=== PATIENT | male | born 1940 | race Caucasian/White ===

== ENCOUNTER 2018-09-26 08:00 | Inpatient (IN) ==
[2018-09-20 15:34] LABS: URINE SOURCE CLEAN CATCH
[2018-09-20 15:41] LABS: BASO# 0.02 X1000 (0.0-0.2); BASO% 0.2 % (0.0-0.8); EOS# 0.06 X1000 (0.0-0.7); EOS% 0.7 % (0.0-10.0); HEMATOCRIT 35.8 % (42.0-52.0); HEMOGLOBIN 11.8 g/dL (14.0-18.0); IMM GRAN# 0.02 X1000 (0.0-0.04); IMM GRAN% 0.2 % (0.0-0.5); LYMPH# 1.99 X1000 (1.2-3.4); LYMPH% 23.9 % (20.5-51.1); MONO# 0.96 X1000 (0.11-0.59); MONO% 11.5 % (1.7-9.3); MPV 9.4 FL (7.4-10.4); NEUT# 5.27 X1000 (1.4-6.5); NEUT% 63.5 % (42.2-75.2); PLT 228 X1000 (130-400); RBC 3.81 XMIL (4.7-6.1); RDW 12.4 % (11.5-14.5); WBC 8.32 X1000 (4.8-10.8)
[2018-09-20 15:42] LABS: BILIRUBIN URINE NEGATIVE (NEGATIVE); BLOOD URINE TRACE (NEGATIVE); COLOR YELLOW; GLUCOSE URINE NEGATIVE (NEGATIVE); KETONE URINE NEGATIVE (NEGATIVE); LEUKOCYTES URINE NEGATIVE (NEGATIVE); NITRITE URINE NEGATIVE (NEGATIVE); PH URINE 6.5; PROTEIN URINE TRACE mg/dL (NEGATIVE); SP GRAVITY URINE 1.017; TURBIDITY URINE CLEAR (CLEAR); UROBILINOGEN URINE NORMAL (NORMAL)
[2018-09-20 15:43] LABS: UR EPITHELIAL CELLS <10 /HPF (<10); URINE BACTERIA NEGATIVE /HPF; URINE RBC <10 /HPF (<10); URINE WBC <10 /HPF (<10)
[2018-09-20 15:47] LABS: PTT 29.5 Seconds (22.3-41.8)
[2018-09-20 16:10] LABS: AGAP 10; BUN 30 mg/dL (8-22); CHLORIDE 96 mmol/L (98-107); COSMO 274; CREATININE 0.9 mg/dL (0.7-1.2); ESTIMATED GFR > 60; GLUCOSE 116 mg/dL (70-104); POTASSIUM 4.3 mmol/L (3.5-5.1); SODIUM 133 mmol/L (136-145); TCO2 27 mmol/L (25-35)
[2018-10-10] MEDS ORDERED: PEPCID ONE (09:26)
[2018-10-10] MEDS ORDERED: REGLAN ONE (09:26)
[2018-10-10] MEDS ORDERED: LYRICA ONE (09:27)
[2018-10-10] MEDS ORDERED: LR 1,000 ML ONE (09:27)
[2018-10-10] MEDS ORDERED: KEFZOL 1 GM/D5W 2 GM/100 ML IVPB ONE (09:27)
[2018-10-10] MEDS ORDERED: CELEBREX ONE (09:27)
[2018-10-10] MEDS ORDERED: COLACE ONE (09:31)
[2018-10-10] MEDS ORDERED: DIPRIVAN 1% ONE (10:30)
[2018-10-10] MEDS ORDERED: FENTANYL ONE ×2 (10:30→12:29)
[2018-10-10] MEDS ORDERED: XYLOCAINE-MPF 2% ONE (10:32)
[2018-10-10] MEDS ORDERED: QUELICIN (DOSE) ONE (10:32)
[2018-10-10] MEDS ORDERED: DURAMORPH ONE (10:41)
[2018-10-10] MEDS ORDERED: TORADOL ONE (10:41)
[2018-10-10] MEDS ORDERED: SODIUM CHLORIDE 0.9% ONE (10:42)
[2018-10-10] MEDS ORDERED: SENSORCAINE-MPF 0.5%/EPI 1:200,000 ONE (10:42)
[2018-10-10] MEDS ORDERED: CYKLOKAPRON 1,000 MG/NS 1,000 MG/100 ML IVPB ONE (10:42)
[2018-10-10] MEDS ORDERED: EXPAREL 1.3% ONE (10:42)
[2018-10-10] MEDS ORDERED: NEOSPORIN G.U. IRRIGANT ONE (10:42)
[2018-10-10] MEDS ORDERED: ZOFRAN ONE (12:23)
[2018-10-10] MEDS ORDERED: OFIRMEV 1000 MG/ISOTONIC SOLN 1,000 MG/100 ML BOTTLE ONE (12:23)
[2018-10-10] MEDS ORDERED: DECADRON ONE ×2 (12:23)
[2018-10-10 12:24] LABS: URINE SOURCE CATH
[2018-10-10 12:38] LABS: BILIRUBIN URINE NEGATIVE (NEGATIVE); BLOOD URINE NEGATIVE (NEGATIVE); COLOR YELLOW; GLUCOSE URINE NEGATIVE (NEGATIVE); KETONE URINE NEGATIVE (NEGATIVE); LEUKOCYTES URINE NEGATIVE (NEGATIVE); NITRITE URINE NEGATIVE (NEGATIVE); PH URINE 7.5; PROTEIN URINE NEGATIVE (NEGATIVE); TURBIDITY URINE CLEAR (CLEAR); UROBILINOGEN URINE NORMAL (NORMAL)
[2018-10-10 12:40] LABS: UR EPITHELIAL CELLS <10 /HPF (<10); URINE BACTERIA NEGATIVE /HPF; URINE RBC <10 /HPF (<10); URINE WBC <10 /HPF (<10)
--- NOTE | 2018-10-10 13:22 | OPERATIVE NOTE ---
PROCEDURE DATE: 10/10/2018 PREOPERATIVE DIAGNOSIS: Left hip degenerative joint disease. POSTOPERATIVE DIAGNOSIS: Left hip degenerative joint disease. PROCEDURE PERFORMED: Left anterior total hip arthroplasty using [facility] size 12 high offset stem with a +0 36 mm head and a 56 mm hemispherical shell with a 35 and 25, 6.5 screw and a 36 mm inside diameter acetabular liner. ANESTHESIA: General. SURGEON: Víctor Carrillo MD. [employer]: Elizabeth Jenkins PA-C, who was present throughout the case, whose assistance was critical for exposure, placement implants, and wound closure. Her assistance greatly reduced anesthesia and operative time and improved efficiency in the OR. BLOOD LOSS: Minimal. DRAINS: Hemovac x1. DESCRIPTION OF PROCEDURE: The patient was brought to the operative suite and placed in supine position. After successful administration of general anesthesia, a longitudinal incision was made beginning 3 cm distal and 3 cm lateral to the anterior superior iliac spines and extending distally and slightly laterally. We dissected sharply through the skin and then sharply down to the tensor fascia. The tensor fascia was incised and dissected bluntly down to the deep tensor fascia. The deep tensor fascia was incised and circumflex vessels electrocauterized, exposing the anterior capsule. A T capsulotomy was performed exposing the femoral neck. Femoral neck cut was made with oscillating saw. Femoral head was removed power corkscrew. The labrum was resected. The acetabulum was serially reamed to a 56 to accept a 56 cup. The 56 cup was driven into place in the proper amount of inclination and anteversion and then two 6.5 cancellous screws were placed, a 35 mm superiorly and a 25 mm posterior-superiorly. The acetabular liner was locked onto the shell. Attention was then directed to the femur. The femur was externally rotated, extended, adducted, and elevated out of the wound with the hook on the OSI bed. The lateral neck was rongeured. The canal was serially broached to a size 12. A size 12 high offset +0 was trialed and found be excellent leg length, excellent stability of the hip, excellent fit and fill of the stem, excellent offset. The trial stem was then removed. The definitive stem was seated onto the femur and then the ceramic head was seated on the Waters taper. The hip was again reduced. A drain was placed deep to the tensor fascia and buried around the stem neck. X-rays showed excellent placement of the stem, excellent offset, excellent leg length, and excellent stability of the hip. The anterior capsule was repaired with #2 FiberWire. The hip was copiously irrigated with normal saline containing irrigant and Vashe irrigation, and a drain was placed deep to the tensor fascia buried around the stem neck. The tensor fascia was closed with 0 V-Loc. Skin edge approximated with 2-0 Vicryl. Skin was closed with 4-0 Monocryl and a Prineo dressing. A sterile dressing was applied. The patient tolerated the procedure well without complication. At the end the procedure, all counts were correct x2. The patient was transferred to the recovery room in stable condition. cc: Víctor Carrillo MD [facility]
[2018-10-10] MEDS ORDERED: NS 1,000 ML ONE (13:33)
[2018-10-10] MEDS: DILAUDID ONE ×2 (13:48→13:51)
[2018-10-10] MEDS ORDERED: MILK OF MAGNESIA PO PRN (15:43)
[2018-10-10] MEDS ORDERED: MORPHINE IV PRN (15:43)
[2018-10-10] MEDS ORDERED: NITROGLYCERIN SL PRN (15:43)
[2018-10-10] MEDS ORDERED: OXY IR PO PRN ×2 (15:43)
[2018-10-10] MEDS ORDERED: ZOFRAN IV PRN (15:43)
[2018-10-10] MEDS: NS 1,000 ML IV SCH ×2 (17:09→17:10)
[2018-10-10] MEDS ORDERED: CYKLOKAPRON 1,000 MG in NS 100 ML IV ONE (17:45)
[2018-10-10] MEDS: PERIDEX MT SCH (20:01)
[2018-10-10] MEDS: TYLENOL PO SCH (20:02)
[2018-10-10] MEDS: LYRICA PO SCH (20:02)
[2018-10-10] MEDS: COLACE PO SCH (20:03)
[2018-10-10] MEDS: ULTRAM PO SCH (20:03)
[2018-10-10] MEDS: KEFZOL 2 GM/D5W 2 GM/50 ML IVPB IV SCH (20:56)
[2018-10-11] MEDS: KEFZOL 2 GM/D5W 2 GM/50 ML IVPB IV SCH (03:07)
[2018-10-11] MEDS: ULTRAM PO SCH ×4 (03:08→21:28)
[2018-10-11] MEDS: TYLENOL PO SCH ×4 (03:08→21:29)
[2018-10-11] MEDS: NS 1,000 ML IV SCH ×3 (03:09→18:47)
[2018-10-11 06:10] LABS: HEMATOCRIT 26.5 % (42.0-52.0); HEMOGLOBIN 8.7 g/dL (14.0-18.0)
[2018-10-11 06:40] LABS: AGAP 12; BUN 23 mg/dL (8-22); CALCIUM 7.8 mg/dL (8.8-10.2); CHLORIDE 98 mmol/L (98-107); COSMO 273; CREATININE 0.9 mg/dL (0.7-1.2); ESTIMATED GFR > 60; GLUCOSE 114 mg/dL (70-104); POTASSIUM 4.2 mmol/L (3.5-5.1); SODIUM 134 mmol/L (136-145); TCO2 24 mmol/L (25-35)
[2018-10-11] MEDS: PROTONIX PO SCH (08:07)
[2018-10-11] MEDS: PERIDEX MT SCH ×2 (08:08→21:28)
[2018-10-11] MEDS: COLACE PO SCH ×2 (08:08→21:29)
[2018-10-11] MEDS: ASPIRIN PO SCH (08:08)
[2018-10-11] MEDS: PEPCID PO SCH (08:08)
[2018-10-11] MEDS: LYRICA PO SCH ×2 (08:08→21:29)
[2018-10-11] MEDS: CENTRUM SILVER PO SCH (08:08)
--- NOTE | 2018-10-11 08:36 | DISCHARGE SUMMARY ---
ADMISSION DATE: 10/10/2018 DISCHARGE DATE: 10/12/2018 DISCHARGE DIAGNOSIS: Left hip degenerative joint disease status post left anterior total hip arthroplasty. DISCHARGE MEDICATION: See discharge medication list. DISPOSITION: The patient discharged home with home health physical therapy. Instructed to return for any signs of symptoms of infection or deep venous thrombosis. Instructed return to see Dr. Carrillo next . HOSPITAL COURSE: On the day of admission, patient underwent a left anterior total hip arthroplasty. His postoperative course was unremarkable. He was discharged afebrile, tolerating a regular diet, ambulating well with physical therapy. His wound is clean, dry , and intact without sign of infection. He is discharged home in stable condition, instructed to follow up as described above. cc: Vícotr Carrillo MD MTDD
[2018-10-11] MEDS ORDERED: DECADRON IV ONE (09:00)
[2018-10-11 09:32] LABS: AGAP 9; BUN 20 mg/dL (8-22); CALCIUM 7.8 mg/dL (8.8-10.2); CHLORIDE 101 mmol/L (98-107); COSMO 276; CREATININE 0.9 mg/dL (0.7-1.2); ESTIMATED GFR > 60; GLUCOSE 149 mg/dL (70-104); SODIUM 135 mmol/L (136-145); TCO2 25 mmol/L (25-35)
[2018-10-11] MEDS: DIOVAN PO SCH (18:46)
[2018-10-11] MEDS: HYDROCHLOROTHIAZIDE PO SCH (18:47)
[2018-10-11] MEDS: LASIX PO SCH (18:47)
[2018-10-11] MEDS: PRAVACHOL PO SCH (21:28)
[2018-10-12] MEDS: TYLENOL PO SCH ×4 (02:38→21:24)
[2018-10-12] MEDS: ULTRAM PO SCH ×4 (02:39→21:22)
[2018-10-12 06:18] LABS: HEMATOCRIT 24.8 % (42.0-52.0); HEMOGLOBIN 8.1 g/dL (14.0-18.0)
[2018-10-12] MEDS: PROTONIX PO SCH (06:49)
[2018-10-12] MEDS: DIOVAN PO SCH (09:16)
[2018-10-12] MEDS: COLACE PO SCH ×2 (09:17→21:23)
[2018-10-12] MEDS: LASIX PO SCH (09:17)
[2018-10-12] MEDS: CENTRUM SILVER PO SCH (09:17)
[2018-10-12] MEDS: PEPCID PO SCH (09:17)
[2018-10-12] MEDS: LYRICA PO SCH ×2 (09:17→21:23)
[2018-10-12] MEDS: ASPIRIN PO SCH (09:17)
[2018-10-12] MEDS: HYDROCHLOROTHIAZIDE PO SCH (09:18)
--- NOTE | 2018-10-12 11:36 | PROGRESS NOTE ---
DATE: 10/12/2018 SUBJECTIVE: Doyle Sanchez is a 78-year-old male with a left anterior total hip arthroplasty. He has no complaints. OBJECTIVE: He is a well-developed, well-nourished male. He is alert, oriented, and cooperative with the exam. His vital signs are stable. He is afebrile. His hematocrit is 26.4. His hemoglobin is 8.7. However, he was unable to adequately ambulate safely or navigate stairs today. Therefore, we have canceled any discharge plans and we will keep him overnight. ASSESSMENT: Left anterior total hip arthroplasty. PLAN: We will continue working with physical therapy and hopefully he can go home tomorrow if he is ambulatory. cc: Víctor Carrillo MD
--- NOTE | 2018-10-12 12:04 | PROGRESS NOTE ---
DATE: 10/12/2018 SUBJECTIVE: Doyle Sanchez is a 78-year-old male who is postoperative day 2 from a left total hip arthroplasty. He has no complaints. OBJECTIVE: He is a well-developed, well-nourished male. He is alert, oriented, and cooperative with exam. He is still having difficulty with physical therapy. He still has to be the assisted and cannot walk on his own. 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 LABORATORY DATA: Hematocrit is 24 today. ASSESSMENT: Acute blood-loss anemia and slow progress with physical therapy due to his right leg. PLAN: We are going to continue working with physical therapy. We are going to try to get him into rehab tomorrow. I am going to go ahead and transfuse him 2 units this afternoon. I think he will do much better once he gets to rehab for a while and gets some more strength. cc: Víctor Carrillo MD
[2018-10-12] MEDS ORDERED: NS 500 ML ONE (13:20)
[2018-10-12] MEDS ORDERED: NS 500 ML IV SCH (14:00)
--- NOTE | 2018-10-12 16:04 | Diag Imaging Result Doc PS360 ---
CHEST-PORTABLE - 10/12/2018 INDICATION: REHAB PLACEMENT COMPARISON: 04/08/2016 FINDINGS: Stable significant calcified pleural plaques bilaterally. No focal infiltrates, pneumothorax, or pleural effusion. Heart size remains top normal. IMPRESSION: No acute process. Electronically signed by Haider Fitzpatrick 10/12/2018 4:02 PM
[2018-10-12] MEDS: PERIDEX MT SCH ×2 (20:52→21:22)
[2018-10-12] MEDS: PRAVACHOL PO SCH (21:22)
[2018-10-13] MEDS: TYLENOL PO SCH ×2 (03:45→11:19)
[2018-10-13] MEDS: ULTRAM PO SCH ×2 (03:46→11:07)
[2018-10-13 06:50] LABS: HEMATOCRIT 29.2 % (42.0-52.0); HEMOGLOBIN 9.5 g/dL (14.0-18.0)
[2018-10-13] MEDS: PROTONIX PO SCH (08:23)
--- NOTE | 2018-10-13 09:43 | DISCHARGE SUMMARY ---
ADMISSION DATE: 10/10/2018 DISCHARGE DATE: 10/13/2018 DISCHARGE DIAGNOSIS: Left hip degenerative joint disease status post left anterior total hip arthroplasty. DISCHARGE MEDICATIONS: See discharge medication list. DISPOSITION: The patient discharged to rehab with instructions for a total hip arthroplasty protocol. DISCHARGE INSTRUCTIONS: Instructed to return for any signs or symptoms of infection or deep venous thrombosis. Instructed to return to see Dr. Carrillo next . HOSPITAL COURSE: On the day of admission, patient underwent a left anterior total hip arthroplasty. His postoperative course was complicated by his partial paralysis of his right leg, making it difficult for him to establish a safe gait with physical therapy and therefore, we felt he would benefit from an extended stay at a rehab facility. He also developed acute blood loss anemia, which was treated with transfusion. At discharge, he is afebrile, tolerating a regular diet, ambulating with physical therapy with some assistance, and his wound is clean, dry, intact without sign of infection or DVT. He is discharged to rehab in stable condition with instructions to follow up as described above. cc: Víctor Carrillo MD
[2018-10-13] MEDS: DIOVAN PO SCH (11:09)
[2018-10-13] MEDS: ASPIRIN PO SCH (11:09)
[2018-10-13] MEDS: PERIDEX MT SCH (11:17)
[2018-10-13] MEDS: COLACE PO SCH (11:18)
[2018-10-13] MEDS: CENTRUM SILVER PO SCH (11:18)
[2018-10-13] MEDS: LYRICA PO SCH (11:19)
[2018-10-13] MEDS: LASIX PO SCH (11:19)
[2018-10-13] MEDS: PEPCID PO SCH (11:19)
[2018-10-13] MEDS: HYDROCHLOROTHIAZIDE PO SCH (11:20)
[2018-10-13 12:32] VITALS: BP 138/80
== END 2018-10-13 13:16 | DRG 470 ==
LOC: SURHOLD 10-10 03:45 → 4N 10-10 15:02
PROVIDERS: ADMIT Orthopaedic Surgery; ATTEND Orthopaedic Surgery
CPT/HCPCS: 36430; 71010; 71045; 76000; 80048; 81001; 85014; 85018; 85025; 85610; 85730; 86850; 86900; 86901; 86920; 88304; 88311; 93005; 94761; 94799; 97110; 97116; 97162; 97530; A9270; C9290; J0131; J0330; J0690; J1100; J1170; J1885; J2274; J2275; J2405; J3010; J7030; J7040; J7120; P9016; Q9974